=== PATIENT | female | born 1930 | race Caucasian/White ===

== ENCOUNTER 2017-03-10 15:43 | Emergency (ER) | payer MEDICARE, OTHER | END 2017-03-10 19:40 | disposition home or self-care (01) | LOC: ER 15:43 | DX: S00.93XA Contusion of unspecified part of head, initial encounter (principal); R51 Headache; M54.2 Cervicalgia; M25.561 Pain in right knee; M25.562 Pain in left knee; M25.551 Pain in right hip; W19.XXXA Unspecified fall, initial encounter; Y92.019 Unspecified place in single-family (private) house as the place of occurrence of the external cause; N18.9 Chronic kidney disease, unspecified; Z79.899 Other long term (current) drug therapy; Z79.82 Long term (current) use of aspirin | CPT/HCPCS: 70450; 72040; 72125; 73502; 73564; 99070; 99283; 99283-25 ==